=== PATIENT | male | born 1970 | race Caucasian/White ===

== ENCOUNTER 2016-12-02 16:11 | Emergency (ER) | payer SELFPAY ==
[2016-12-02 16:30] VITALS: BP 122/67; PULSE 84; RESP 18; TEMP 98.1; O2SAT 92
== END 2016-12-02 18:12 | disposition left against medical advice (07) ==
LOC: CED 16:11
DX: H57.9 Unspecified disorder of eye and adnexa (principal); Z53.21 Procedure and treatment not carried out due to patient leaving prior to being seen by health care provider

== ENCOUNTER 2016-12-03 13:50 | Emergency (ER) | payer SELFPAY ==
[2016-12-03 14:26] VITALS: BP 126/64; PULSE 76; RESP 16; TEMP 98.2; O2SAT 94
--- NOTE | 2016-12-03 15:13 | UCPHY ---
H & P Time Seen by Provider: 12/03/16 14:44 Patient Type: New HPI/ROS: This patient complains of red eyes. He explains that his niece had conjunctivitis and he was around here couple days prior to the onset of his red eyes. He reports discharge from the right more than left eye this morning and minimal discomfort associated with it. Has no other ocular symptoms. He does have coryza of 2 days duration. No other associated symptoms. No exacerbating or alleviating factors. ROS: No fevers or chills. No recent eye trauma. No other HEENT complaints. 5 point ROS is otherwise negative. Past Medical/Surgical History: Otherwise healthy Smoking Status: Never smoked Physical Exam: Physical Exam Vital signs are normal. General: No acute distress HEENT: Nose: Clear discharge. No sinus tenderness to percussion. Oropharynx is clear Eyes: Pupils equal and react to light. Extraocular motions are intact. Conjunctival injection bilaterally right more than left. No discharge actively . Lids and lashes are normal. No periorbital findings. Cardiac: Brisk capillary refill is intact throughout. Skin: No rash or pallor. Neuro: Alert and oriented x3 with no sensorimotor deficits. Initial differential diagnosis: Viral versus bacterial conjunctivitis and URI Constitutional: Initial Vital Signs Temperature (C) 36.8 C 12/03/16 14:22 Heart Rate 76 12/03/16 14:22 Respiratory Rate 16 12/03/16 14:22 Blood Pressure 126/64 H 12/03/16 14:22 O2 Sat (%) 94 12/03/16 14:22 O2 Delivery Mode Room Air Allergies/Adverse Reactions: No Known Allergies Allergy (Unverified 12/03/16 14:21) Home Medications: Medication Instructions Recorded Sulfacetamide 10% [Bleph-10 10%] 2 drops EACHEYE Q2 #1 opht.btl 12/03/16 Departure - Departure Disposition: Home, Routine, Self-Care Clinical Impression: Conjunctivitis Qualifiers: Conjunctivitis type: acute Acute conjunctivitis type: unspecified Laterality: bilateral Qualified Code(s): H10.33 - Unspecified acute conjunctivitis, bilateral Upper respiratory infection Qualifiers: URI type: unspecified viral URI Qualified Code(s): J06.9 - Acute upper respiratory infection, unspecified Condition: Good Instructions: Conjunctivitis (ED) Additional Instructions: Diagnoses: 1. Conjunctivitis 2. Viral URI Plan: Sulfacetamide drops as prescribed Humidifier Tylenol or ibuprofen for discomfort as needed Your symptoms should improve over the next 5-7 days. Return for any significant worsening despite treatment plan Referrals: NONE *PRIMARY CARE P,. [Primary Care Provider] - As per Instructions Stand Alone Forms: Work Excuse Prescriptions: Sulfacetamide 10% [Bleph-10 10%] 2 drops EACHEYE Q2 #1 opht.btl - PQRS PQRS Measurement: NA
== END 2016-12-03 15:20 | disposition home or self-care (01) ==
LOC: CED 13:50
DX: H10.33 Unspecified acute conjunctivitis, bilateral (principal); J06.9 Acute upper respiratory infection, unspecified
CPT/HCPCS: G0463-PO